=== PATIENT | male | born 1935 | race Caucasian/White ===

== ENCOUNTER 2016-10-26 21:10 | Emergency (ER) | payer MEDICARE ==
[~2016-10-26] VITALS: Ht 167.6 cm; Wt 68.5 kg
[2016-10-26] MEDS ORDERED: CRESTOR (21:40)
[2016-10-26] MEDS ORDERED: TOPROL XL (21:40)
[2016-10-26] MEDS ORDERED: UNIPHYLL (21:40)
[2016-10-26] MEDS ORDERED: ZYLOPRIM (21:40)
[2016-10-26] MEDS ORDERED: RESTORE (21:40)
[2016-10-26] MEDS ORDERED: SYMBICORT80 (21:41)
[2016-10-26] MEDS ORDERED: DOXEPIN (21:41)
== END 2016-10-26 23:11 | disposition home or self-care (01) ==
LOC: SED 21:10
DX: S01.01XA Laceration without foreign body of scalp, initial encounter (principal); Z79.899 Other long term (current) drug therapy; Z23 Encounter for immunization; W01.0XXA Fall on same level from slipping, tripping and stumbling without subsequent striking against object, initial encounter; Y92.009 Unspecified place in unspecified non-institutional (private) residence as the place of occurrence of the external cause
CPT/HCPCS: 12001; 90471; 90715; 99283